=== PATIENT | male | born 1990 | race American Indian/Alaskan Native ===

== ENCOUNTER 2017-08-11 02:09 | Emergency (ER) | payer SELFPAY ==
[2017-08-11 02:15] VITALS: BP 139/92
[2017-08-11] MEDS ORDERED: TYLENOL PO ONE (06:10)
--- NOTE | 2017-08-11 06:15 | Emergency Department Report ---
ED Back Pain/Injury HPI - General Chief Complaint: Back Pain/Injury Stated Complaint: BACK PAIN Time Seen by Provider: 08/11/17 05:53 Source: patient Limitations: No Limitations - History of Present Illness Initial Comments: 27-year-old male past medical history none presents with complaint of 3 days of mid and lower back pain. 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 Patient states that he has had sensation of tightening muscles in his mid and lower back for the last few days. Denies any direct trauma. No recent falls. Denies any loss of bladder or bowel control. Patient is ambulatory without assistance. States that he works 12 hour shifts and lifts heavy equipment and cinder blocks consistently throughout his work day. Patient states he took over -the-counter Motrin once with minimal relief of his pain. Describes sensation of slight muscle spasm and tightness in his mid back. Does not radiate to her buttocks or legs. No saddle paresthesias endorsed by patient. Denies any IV drug use denies abdominal pain fever or chills. MD Complaint: back pain Onset/Timin -: days(s) Similar Symptoms Previously: Yes Place: home Severity: moderate Severity scale (0 -10): 5 Quality: dull, aching Consistency: intermittent Worsens With: movement Context: while lifting, turning/twisting Associated Symptoms: denies other symptoms - Related Data Previous Rx's Medication Instructions Recorded Last Taken Type Cyclobenzaprine [Flexeril] 10 mg PO TID PRN #9 tablet 08/11/17 Unknown Rx Ibuprofen [Motrin] 800 mg PO Q8HR PRN #20 tablet 08/11/17 Unknown Rx Allergies Allergy/AdvReac Type Severity Reaction Status Date / Time No Known Allergies Allergy Unverified 08/11/17 02:15 ED Review of Systems ROS: Stated complaint: BACK PAIN Other details as noted in HPI Constitutional: denies: chills, fever Eyes: denies: eye pain, eye discharge, vision change ENT: denies: ear pain, throat pain Respiratory: denies: cough, shortness of breath, wheezing Cardiovascular: denies: chest pain, palpitations Endocrine: no symptoms reported Gastrointestinal: denies: abdominal pain, nausea, diarrhea Genitourinary: denies: urgency, dysuria Musculoskeletal: back pain. denies: joint swelling, arthralgia Skin: denies: rash, lesions Neurological: denies: headache, weakness, paresthesias Psychiatric: denies: anxiety, depression Hematological/Lymphatic: denies: easy bleeding, easy bruising ED Past Medical Hx - Past Medical History Previous Medical History?: No - Surgical History Past Surgical History?: No - Social History Smoking Status: Never Smoker Substance Use Type: None - Medications Home Medications: Home Medications Medication Instructions Recorded Confirmed Last Taken Type Cyclobenzaprine [Flexeril] 10 mg PO TID PRN #9 tablet 08/11/17 Unknown Rx Ibuprofen [Motrin] 800 mg PO Q8HR PRN #20 tablet 08/11/17 Unknown Rx ED Physical Exam - General Limitations: No Limitations General appearance: alert, in no apparent distress - Head Head exam: Present: atraumatic, normocephalic - Eye Eye exam: Present: normal appearance, PERRL, EOMI - ENT ENT exam: Present: mucous membranes moist - Neck Neck exam: Present: normal inspection - Respiratory Respiratory exam: Present: normal lung sounds bilaterally. Absent: respiratory distress - Cardiovascular Cardiovascular Exam: Present: regular rate, normal rhythm. Absent: systolic murmur, diastolic murmur, rubs, gallop - GI/Abdominal GI/Abdominal exam: Present: soft (abdomen soft nontender nondistended), normal bowel sounds - Rectal Rectal exam: Present: deferred - Extremities Exam Extremities exam: Present: normal inspection - Back Exam Back exam: Present: normal inspection, full ROM, muscle spasm (slight paraspinal trapezius and latissimus discomfort no midline cervical thoracic or lumbar spinal tenderness no rash on exam.), paraspinal tenderness - Neurological Exam Neurological exam: Present: alert, oriented X3, CN II-XII intact, normal gait - Psychiatric Psychiatric exam: Present: normal affect, normal mood - Skin Skin exam: Present: warm, dry, intact, normal color. Absent: rash ED Course Vital Signs 08/11/17 02:10 Temperature 97.9 F Pulse Rate 99 H Respiratory 18 Rate Blood Pressure 139/92 O2 Sat by Pulse 96 Oximetry ED Medical Decision Making - Medical Decision Making A/P: Musculoskeletal back pain 1- no signs of radiculopathy, patient is ambulatory without assistance no clinical signs of cauda equina 2- Motrin 800 mg when necessary, short course Flexeril when necessary 3- f/u with primary care 4- as patient has no trauma and is ambulatory no clinical indication for imaging of the spine at this time. Patient has no urinary symptoms no dysuria no hematuria and no flank pain on clinical exam Critical care attestation.: If time is entered above; I have spent that time in minutes in the direct care of this critically ill patient, excluding procedure time. ED Disposition Clinical Impression: Low back pain Qualifiers: Chronicity: acute Back pain laterality: bilateral Sciatica presence: without sciatica Qualified Code(s): M54.5 - Low back pain Disposition: TO HOME OR SELFCARE Is pt being admited?: No Does the pt Need Aspirin: No Condition: Stable Instructions: Low Back Strain (ED), Acute Low Back Pain (ED), Back Pain (ED), Muscle Spasm (ED) Prescriptions: Cyclobenzaprine [Flexeril] 10 mg PO TID PRN #9 tablet PRN Reason: Muscle Spasm Ibuprofen [Motrin] 800 mg PO Q8HR PRN #20 tablet PRN Reason: Pain Referrals: [facility] [Outside] - 3-5 Days [facility] [Outside] - 3-5 Days Forms: Work/School Release Form(ED) Time of Disposition: 06:18
== END 2017-08-11 06:32 | disposition home or self-care (01) ==
LOC: ED 02:09
DX: M54.5 Low back pain (principal)
CPT/HCPCS: 99282